=== PATIENT | female | born 1990 | race Caucasian/White ===

== ENCOUNTER 2016-06-10 05:39 | Emergency (ER) | payer BC ==
[~2016-06-10] VITALS: Ht 167.6 cm; Wt 49.9 kg
[~2016-06-10 05:39] MED LIST: ALPR0.5T
[2016-06-10 05:59] VITALS: BP 114/73
[2016-06-10] MEDS ORDERED: CEFTRIAXONE 500 MG VIAL IM ONE (06:30)
[2016-06-10] MEDS ORDERED: AZITHROMYCIN 250 MG TABLET PO ONE (06:30)
[2016-06-10] MEDS ORDERED: CEFTRIAXONE 500 MG VIAL ONE (07:23)
[2016-06-10] MEDS ORDERED: AZITHROMYCIN 250 MG TABLET ONE (07:23)
[2016-06-10] MEDS ORDERED: LIDOCAINE /MPF 1% VIAL 5 ML VIAL ONE (07:24)
== END 2016-06-10 07:37 | disposition home or self-care (01) ==
LOC: ER 05:42
DX: H00.033 Abscess of eyelid right eye, unspecified eyelid (principal); F43.10 Post-traumatic stress disorder, unspecified; A64 Unspecified sexually transmitted disease; F17.210 Nicotine dependence, cigarettes, uncomplicated
CPT/HCPCS: 84703; 96372; 99283; A4606; J0696; J3490; Z7610

== ENCOUNTER 2017-03-30 04:05 | Emergency (ER) | payer BC ==
[~2017-03-30] VITALS: Ht 170.2 cm; Wt 50.8 kg
--- NOTE | 2017-03-30 05:33 | NUR ---
PT CALLED IN WAITING ROOM, NO ANSWER.
--- NOTE | 2017-03-30 07:14 | NUR ---
PT C/O RIGHT EYE PROBLEM. SHE HAS A RT EYE ABCESS THAT IS RESOLVING. PREVIOUSLY TREATED. PT IS C/O VAGINAL DISCHARGE AND DYSURIA.
--- NOTE | 2017-03-30 07:26 | NUR ---
REPORT GIVEN TO TATO TAI FOR HEATHER.
--- NOTE | 2017-03-30 08:30 | NUR ---
PT UNABLE TO GIVE URINE SAMPLE AT THIS TIME.
[2017-03-30] MEDS ORDERED: CEFTRIAXONE 1 G VIAL ONE (11:29)
[2017-03-30] MEDS ORDERED: AZITHROMYCIN 250 MG TABLET ONE (11:29)
[2017-03-30] MEDS ORDERED: LIDOCAINE /MPF 1% VIAL 5 ML VIAL ONE (11:30)
[2017-03-30] MEDS ORDERED: AZITHROMYCIN 250 MG TABLET PO ONE (11:30)
[2017-03-30] MEDS ORDERED: CEFTRIAXONE 1 G VIAL IM ONE (11:30)
[2017-03-30 11:38] LABS: APPEARANCE,URINE Clear (CLEAR); BILIRUBIN,URINE Negative (NEGATIVE); BLOOD, URINE Moderate Ery/uL (NEGATIVE); COLOR,URINE Yellow (YELLOW); KETONES,URINE Negative (NEGATIVE); LEUKOCYTE ESTERASE ,URINE Large (NEGATIVE); NITRITE, URINE Negative (NEGATIVE); PH,URINE 8.5 (5.0-8.0); PROTEIN,URINE Trace mg/dl (NEGATIVE); UGLUCOSE Negative (NEGATIVE); UROBILINOGEN,URINE 0.2 EU/dL (0.2)
--- NOTE | 2017-03-30 11:44 | NUR ---
PT MEDICATED ORDERED.
[2017-03-30 11:46] LABS: BACTERIA,URINE 2+ /HPF (None Seen); SQUAMOUS EPITHELIAL CELL,UR Few /HPF (None Seen); WBC,URINE 21-50 /HPF (0-3)
[2017-03-30 13:05] VITALS: BP 125/87
== END 2017-03-30 13:06 | disposition home or self-care (01) ==
LOC: ER 04:07
DX: H00.019 Hordeolum externum unspecified eye, unspecified eyelid (principal); N39.0 Urinary tract infection, site not specified; F17.200 Nicotine dependence, unspecified, uncomplicated; Z59.0 Homelessness
CPT/HCPCS: 81001; 84703; 87086; 96372; 99284; A4606; J0696; J3490; Z7610; 81000-TC